=== PATIENT | male | born 1955 | race Caucasian/White ===

== ENCOUNTER → 2021-01-19 | Outpatient (CLI) | payer MEDICARE ==
[~2021-01-19] MED LIST: ALLOPURINOL300 MG PO; COUMADIN5 MG PO; CYCLOBENZAPRINE5 MG PO; GLIPIZIDE5 MG PO; LISINOPRIL10 MG PO; OXYCODONE-ACET1 EAC1 PO; PRAVASTATIN SOD40 MG PO; REGADENOSON 0.4 MG/5 ML SYR IV ONE; TRAMADOL HCL100 MG PO
== END ==
LOC: NM 07:31
PROVIDERS: ATTEND Internal Medicine Cardiovascular Disease
DX: R07.9 Chest pain, unspecified (principal)
CPT/HCPCS: 78452; 93017; A9502; J2785

== ENCOUNTER 2021-03-23 06:48 | Observation (INO) | payer MEDICARE, OTHER ==
[2021-03-19 08:47] LABS: BASOPHILS % 0.5 % (0.0-1.0); EOSINOPHILS # (AUTO) 0.2 (0.0-0.4); EOSINOPHILS % 2.8 % (0.0-6.0); HEMATOCRIT 45.9 % (38.2-49.6); HEMOGLOBIN 15.5 g/dL (14.0-18.0); LYMPHOCYTES # (AUTO) 2.6 (1.0-3.2); LYMPHOCYTES % 31.8 % (18.0-39.1); MEAN CORPUSCULAR HEMOGLOBIN 30.6 pg (28-32); MEAN CORPUSCULAR HGB CONC 33.8 g/dL (31-35); MEAN CORPUSCULAR VOLUME 90.5 fL (81-99); MONOCYTES # (AUTO) 0.6 (0.2-0.8); MONOCYTES % 7.5 % (4.4-11.3); NEUTROPHILS # (AUTO) 4.6 (2.1-6.9); NEUTROPHILS % 57.2 % (38.7-80.0); PLATELET COUNT 169 x10e3/uL (140-360); RED BLOOD COUNT 5.07 x10e6/uL (4.3-5.7); RED CELL DISTRIBUTION WIDTH 13.2 % (11.7-14.4)
[2021-03-19 09:19] LABS: ANION GAP 16.8 mmol/L (8-16); CALCIUM 8.5 mg/dL (8.4-10.2); CREATININE, SERUM 1.18 mg/dL (0.72-1.25); POTASSIUM 3.8 mmol/L (3.5-5.1)
[2021-03-23] VITALS (7 sets, daily range): BP systolic 115–149; BP diastolic 70–79
[~2021-03-23] VITALS: Ht 185.4 cm; Wt 139.7 kg
[~2021-03-23 06:48] MED LIST changes: +AHIST25 MG; -REGADENOSON 0.4 MG/5 ML SYR IV ONE
[2021-03-23] MEDS ORDERED: SODIUM CHLORIDE 0.9% 500ML 500 ML ONE (06:58)
[2021-03-23] MEDS ORDERED: Vancomycin IV 1,000 MG ONE (06:58)
[2021-03-23] MEDS ORDERED: TRANEXAMIC ACID 1,000 MG/10 ML ML ONE (06:59)
[2021-03-23] MEDS ORDERED: DEXAMETHASONE SOD PHOS 10 MG/1 ML VIAL ONE (07:53)
[2021-03-23] MEDS ORDERED: CELECOXIB 200 MG CAP ONE (07:53)
[2021-03-23] MEDS ORDERED: GABAPENTIN 300 MG CAP ONE (07:54)
[2021-03-23] MEDS ORDERED: SODIUM CHLORIDE 0.9% 50ML 100 ML ONE (07:54)
[2021-03-23] MEDS ORDERED: ROPIVACAINE 246.25 MG, EPINEPHRINE HCL 1:1000 1ML 0.5 MG, CLONIDINE HCL 0.08 MG, KETORO... INJ ONE ×5 (08:00)
[2021-03-23 08:08] LABS: INR 0.91; PARTIAL THROMBOPLASTIN TIME 22.9 seconds (23.8-35.5); PROTHROMBIN TIME 12.4 seconds (11.9-14.5)
[2021-03-23] MEDS ORDERED: HYDROCODONE/APAP 5MG-325MG TAB PO PRN (11:00)
[2021-03-23] MEDS ORDERED: DIPHENHYDRAMINE HCL INJ 50 MG/ML VIAL IV PRN (11:00)
[2021-03-23] MEDS ORDERED: ONDANSETRON HCL INJ 2MG/ML 2ML 2 MG/ML VIAL IV PRN (11:00)
[2021-03-23] MEDS ORDERED: DOCUSATE SODIUM 100 MG CAP PO PRN (11:00)
[2021-03-23] MEDS ORDERED: ACETAMINOPHEN 650 MG SUPP PR PRN (11:00)
[2021-03-23] MEDS ORDERED: HYDROMORPHONE 1MG/1ML INJ ONE ×2 (11:34→12:17)
[2021-03-23] MEDS ORDERED: ROPIVACAINE 0.5% 5 MG/ML 30 ML SDV ONE (13:32)
[2021-03-23] MEDS ORDERED: EPINEPHRINE HCL 1:1000 1ML 1 MG/ML AMP ONE (13:32)
[2021-03-23] MEDS ORDERED: PROPOFOL IV EMULSION 10 MG/ML 20 ML VIAL ONE (13:35)
[2021-03-23] MEDS ORDERED: LIDOCAINE HCL 2% LOCAL INJ 5 ML SDV VIAL INJ ONE (13:35)
[2021-03-23] MEDS ORDERED: POVIDONE IODINE 0.05% 0.05 % ML PO ONE (13:35)
[2021-03-23] MEDS ORDERED: ONDANSETRON HCL INJ 2MG/ML 2ML 2 MG/ML VIAL ONE (13:35)
[2021-03-23] MEDS ORDERED: SEVOFLURANE INHAL SOLN 250 ML PEN BTL ONE (13:35)
[2021-03-23] MEDS ORDERED: MIDAZOLAM HCL 2 MG/2 ML VIAL ONE (13:54)
[2021-03-23] MEDS ORDERED: FENTANYL CITRATE/PF 100MCG/2 ML INJ ONE (13:54)
[2021-03-23] MEDS: CELECOXIB 100 MG CAP PO SCH ×2 (14:49→16:55)
[2021-03-23] MEDS: SODIUM CHLORIDE 0.9% 1000ML 1,000 ML IV SCH ×2 (15:59→21:17)
[2021-03-23] MEDS: ASPIRIN 325 MG TAB PO SCH (16:55)
[2021-03-23] MEDS: Cefazolin 1 GM in SODIUM CHLORIDE 0.9% 50ML 50 ML IV SCH ×2 (16:55→21:19)
[2021-03-23] MEDS: METFORMIN HCL 500 MG TAB PO SCH (17:43)
[2021-03-23] MEDS: GLIPIZIDE 5 MG TAB PO SCH (17:43)
[2021-03-23] MEDS ORDERED: DEXTROSE 50% SYRINGE 50 ML IV PRN ×3 (20:30→20:45)
[2021-03-23] MEDS ORDERED: INSULIN LISPRO 100 UNIT/1 ML 3ML VIAL SQ SCH ×2 (21:00)
[2021-03-23] MEDS ORDERED: INSULIN LISPRO 100 UNIT/1 ML 3ML VIAL SQ ONE (21:00)
[2021-03-23] MEDS ORDERED: ZOLPIDEM TARTRATE 5 MG TAB PO PRN (21:00)
[2021-03-24] VITALS (11 sets, daily range): BP systolic 99–134; BP diastolic 54–93
[2021-03-24 05:15] LABS: HEMATOCRIT 39.3 % (38.2-49.6); HEMOGLOBIN 13.1 g/dL (14.0-18.0)
[2021-03-24] MEDS: Cefazolin 1 GM in SODIUM CHLORIDE 0.9% 50ML 50 ML IV SCH (05:58)
[2021-03-24] MEDS: SODIUM CHLORIDE 0.9% 1000ML 1,000 ML IV SCH ×2 (07:00→17:00)
[2021-03-24] MEDS: INSULIN LISPRO 100 UNIT/1 ML 3ML VIAL SQ SCH ×4 (07:30→21:00)
[2021-03-24] MEDS: ASPIRIN 325 MG TAB PO SCH ×2 (08:01→16:24)
[2021-03-24] MEDS: GLIPIZIDE 5 MG TAB PO SCH ×2 (08:01→16:24)
[2021-03-24] MEDS: METFORMIN HCL 500 MG TAB PO SCH ×2 (08:01→16:24)
[2021-03-24] MEDS: ALLOPURINOL 300 MG TAB PO SCH (08:02)
[2021-03-24] MEDS: CELECOXIB 100 MG CAP PO SCH (08:02)
[2021-03-24] MEDS ORDERED: ACETAMINOPHEN 1000 MG/100 ML IV PRN (11:00)
[2021-03-24] MEDS ORDERED: ONDANSETRON HCL 4 MG ORAL DISINTEGRATING TAB PO PRN (12:15)
[2021-03-24] MEDS: CELECOXIB 200 MG CAP PO SCH (16:24)
[2021-03-24] MEDS: HYDROCODONE/APAP 7.5MG-325MG 1 EA TAB PO PRN (22:31)
[2021-03-25] VITALS: BP 135/78
[2021-03-25] MEDS: SODIUM CHLORIDE 0.9% 1000ML 1,000 ML IV SCH (03:00)
[2021-03-25 04:00] VITALS: BP 112/72
[2021-03-25 05:04] LABS: HEMOGLOBIN 12.4 g/dL (14.0-18.0)
[2021-03-25] MEDS: HYDROCODONE/APAP 7.5MG-325MG 1 EA TAB PO PRN ×2 (06:29→10:33)
[2021-03-25] MEDS: INSULIN LISPRO 100 UNIT/1 ML 3ML VIAL SQ SCH ×2 (07:30→11:30)
[2021-03-25] MEDS: GLIPIZIDE 5 MG TAB PO SCH (07:30)
[2021-03-25] MEDS: METFORMIN HCL 500 MG TAB PO SCH (08:00)
[2021-03-25 08:15] VITALS: BP 127/79
[2021-03-25 08:24] VITALS: BP 127/79
[2021-03-25] MEDS: ALLOPURINOL 300 MG TAB PO SCH (09:00)
[2021-03-25] MEDS: ASPIRIN 325 MG TAB PO SCH (09:00)
[2021-03-25] MEDS: CELECOXIB 200 MG CAP PO SCH (09:00)
[2021-03-25] MEDS: CELECOXIB 100 MG CAP PO SCH (10:33)
[2021-03-25 12:00] VITALS: BP 108/78
[2021-03-25] MEDS ORDERED: WARFARIN SOD 2 MG TAB PO SCH (17:00)
== END 2021-03-25 14:46 | disposition home health service (06) ==
LOC: OR 06:48 → PACU V 11:01 → MED/SURG 14:31
PROVIDERS: ADMIT Specialist; ATTEND Specialist
DX: M17.11 Unilateral primary osteoarthritis, right knee (principal); Z20.822 Contact with and (suspected) exposure to COVID-19; M10.9 Gout, unspecified; I10 Essential (primary) hypertension; Z01.818 Encounter for other preprocedural examination; E66.01 Morbid (severe) obesity due to excess calories; Z68.41 Body mass index [BMI] 40.0-44.9, adult
CPT/HCPCS: 27447; 36415 ×4; 71046; 73560; 80048; 82948 ×3; 85014 ×2; 85018 ×2; 85025; 85610; 85730; 86850; 86900; 86920; 93005; 96372; 97110 ×2; 97116 ×2; 97139; 97162; 97530 ×4; C1713 ×4; C1776 ×2; G0378 ×3; J0171; J0690 ×2; J1100; J1170; J1885; J2001; J2405; J2704; J2795; J3370; J7030; J7040; U0002; J2250; J3010

== ENCOUNTER 2021-05-31 06:16 | Observation (INO) | payer MEDICARE ==
[2021-05-27 11:06] LABS: BASOPHILS % 0.6 % (0.0-1.0); EOSINOPHILS # (AUTO) 0.3 (0.0-0.4); EOSINOPHILS % 3.5 % (0.0-6.0); HEMATOCRIT 42.9 % (38.2-49.6); HEMOGLOBIN 13.9 g/dL (14.0-18.0); LYMPHOCYTES % 27.9 % (18.0-39.1); MEAN CORPUSCULAR HEMOGLOBIN 29.4 pg (28-32); MEAN CORPUSCULAR HGB CONC 32.4 g/dL (31-35); MEAN CORPUSCULAR VOLUME 90.9 fL (81-99); MONOCYTES # (AUTO) 0.5 (0.2-0.8); MONOCYTES % 7.3 % (4.4-11.3); NEUTROPHILS # (AUTO) 4.4 (2.1-6.9); NEUTROPHILS % 60.4 % (38.7-80.0); PLATELET COUNT 243 x10e3/uL (140-360); RED BLOOD COUNT 4.72 x10e6/uL (4.3-5.7); RED CELL DISTRIBUTION WIDTH 14.7 % (11.7-14.4)
[2021-05-27 11:27] LABS: ANION GAP 14.3 mmol/L (8-16); CALCIUM 9.3 mg/dL (8.4-10.2); CREATININE, SERUM 1.08 mg/dL (0.72-1.25); POTASSIUM 4.3 mmol/L (3.5-5.1)
[~2021-05-31] VITALS: Ht 185.4 cm; Wt 132.4 kg
[2021-05-31] MEDS ORDERED: ROPIVACAINE 246.25 MG, EPINEPHRINE HCL 1:1000 1ML 0.5 MG, CLONIDINE HCL 0.08 MG in SODI... INJ ONE (06:30)
[2021-05-31] MEDS ORDERED: DEXAMETHASONE SOD PHOS 10 MG/1 ML VIAL ONE (07:06)
[2021-05-31] MEDS ORDERED: GABAPENTIN 300 MG CAP ONE (07:06)
[2021-05-31] MEDS ORDERED: SODIUM CHLORIDE 0.9% 50ML 100 ML ONE (07:07)
[2021-05-31] MEDS ORDERED: Vancomycin IV 1,000 MG ONE (07:48)
[2021-05-31] MEDS ORDERED: TRANEXAMIC ACID 1,000 MG/10 ML ML ONE (07:48)
[2021-05-31] MEDS ORDERED: SODIUM CHLORIDE 0.9% 500ML 500 ML ONE (07:49)
[2021-05-31 07:58] LABS: INR 0.93; PROTHROMBIN TIME 12.9 seconds (11.9-14.5)
[2021-05-31 07:59] LABS: PARTIAL THROMBOPLASTIN TIME 25.1 seconds (23.8-35.5)
[2021-05-31] MEDS ORDERED: SODIUM CHLORIDE 0.9% 1000ML 1,000 ML IV SCH (10:00)
[2021-05-31] MEDS ORDERED: DIPHENHYDRAMINE HCL INJ 50 MG/ML VIAL IV PRN (10:00)
[2021-05-31] MEDS ORDERED: KETOROLAC TROMETHAMINE 30 MG/ML VIAL IV PRN (10:00)
[2021-05-31] MEDS ORDERED: ACETAMINOPHEN 650 MG SUPP PR PRN (10:00)
[2021-05-31] MEDS ORDERED: HYDROCODONE/APAP 5MG-325MG TAB PO PRN (10:00)
[2021-05-31] MEDS ORDERED: DOCUSATE SODIUM 100 MG CAP PO PRN (10:00)
[2021-05-31] MEDS ORDERED: HYDROCODONE/APAP 7.5MG-325MG 1 EA TAB PO PRN (10:00)
[2021-05-31] MEDS ORDERED: ONDANSETRON HCL INJ 2MG/ML 2ML 2 MG/ML VIAL IV PRN (10:00)
[2021-05-31] MEDS ORDERED: INSULIN REGULAR, HUMAN 100 UNIT/1 ML ONE (10:25)
[2021-05-31] MEDS ORDERED: FENTANYL CITRATE/PF 100MCG/2 ML INJ ONE (10:30)
[2021-05-31] MEDS ORDERED: MORPHINE SULFATE INJ 4 MG/ML INJ 1ML ONE (10:55)
[2021-05-31 11:53] VITALS: BP 149/85
[2021-05-31 11:54] VITALS: BP 149/85
[2021-05-31 12:06] VITALS: BP 149/85
[2021-05-31] MEDS ORDERED: ACETAMINOPHEN 1000 MG/100 ML IV PRN (14:00)
[2021-05-31 15:47] VITALS: BP 183/98
[2021-05-31] MEDS ORDERED: CELECOXIB 100 MG CAP PO SCH (17:00)
[2021-05-31] MEDS ORDERED: Cefazolin 1 GM in SODIUM CHLORIDE 0.9% 50ML 50 ML IV SCH (17:00)
[2021-05-31] MEDS ORDERED: ASPIRIN 325 MG TAB PO SCH (17:00)
[2021-05-31] MEDS ORDERED: ZOLPIDEM TARTRATE 5 MG TAB PO PRN (21:00)
== END 2021-05-31 17:55 | disposition home or self-care (01) ==
LOC: OR 06:16 → PACU V 10:08 → MED/SURG 11:35
PROVIDERS: ADMIT Specialist; ATTEND Specialist
DX: M17.12 Unilateral primary osteoarthritis, left knee (principal); E66.9 Obesity, unspecified; E11.9 Type 2 diabetes mellitus without complications; D64.9 Anemia, unspecified; I10 Essential (primary) hypertension; E78.5 Hyperlipidemia, unspecified; M10.9 Gout, unspecified; Z68.39 Body mass index [BMI] 39.0-39.9, adult; Z88.8 Allergy status to other drugs, medicaments and biological substances; Z87.891 Personal history of nicotine dependence; Z86.711 Personal history of pulmonary embolism; Z88.5 Allergy status to narcotic agent; Z91.013 Allergy to seafood; Z01.812 Encounter for preprocedural laboratory examination; Z20.822 Contact with and (suspected) exposure to COVID-19; Z79.84 Long term (current) use of oral hypoglycemic drugs
CPT/HCPCS: 27447; 36415 ×2; 73560; 80048; 82948; 85025; 85610; 85730; 86850; 86900; 86920; 97116; 97139; 97162; 97530; C1713; G0378; J0171; J0690; J1100; J1817; J2270; J2795; J3010; J3370; J7030; J7040; U0002

== ENCOUNTER 2024-11-09 13:51 | Inpatient (IN) | payer MEDICARE, OTHER ==
[~2024-11-09] VITALS: Ht 185.4 cm; Wt 137.4 kg
[2024-11-09 15:01] LABS: BASOPHILS % 0.4 % (0.0-1.0); EOSINOPHILS # (AUTO) 0.2 (0.0-0.4); EOSINOPHILS % 2.9 % (0.0-6.0); HEMATOCRIT 42.7 % (38.2-49.6); HEMOGLOBIN 14.4 g/dL (14.0-18.0); LYMPHOCYTES # (AUTO) 1.8 (1.0-3.2); LYMPHOCYTES % 21.2 % (18.0-39.1); MEAN CORPUSCULAR HEMOGLOBIN 30.4 pg (28-32); MEAN CORPUSCULAR HGB CONC 33.7 g/dL (31-35); MEAN CORPUSCULAR VOLUME 90.3 fL (81-99); MONOCYTES # (AUTO) 0.5 (0.2-0.8); MONOCYTES % 6.2 % (4.4-11.3); NEUTROPHILS # (AUTO) 5.7 (2.1-6.9); NEUTROPHILS % 68.9 % (38.7-80.0); PLATELET COUNT 304 x10e3/uL (140-360); RED BLOOD COUNT 4.73 x10e6/uL (4.3-5.7); RED CELL DISTRIBUTION WIDTH 13.2 % (11.7-14.4); WHITE BLOOD COUNT 8.25 x10e3/uL (4.8-10.8)
[2024-11-09 15:24] LABS: ALBUMIN 2.9 g/dL (3.5-5.0); ALBUMIN/GLOBULIN RATIO 0.6 (0.8-2.0); ANION GAP 16.6 mmol/L (8-16); BILIRUBIN,TOTAL 0.4 mg/dL (0.2-1.2); CALCIUM 9.2 mg/dL (8.4-10.2); CREATININE, SERUM 1.12 mg/dL (0.72-1.25); POTASSIUM 4.6 mmol/L (3.5-5.1); TOTAL PROTEIN 7.8 g/dL (6.5-8.1)
[2024-11-09] MEDS: SODIUM CHLORIDE 0.9% 1000ML 1,000 ML IV SCH (16:05)
[2024-11-09 16:14] VITALS: PULSE 65; RESP 28; TEMP 98.7
[2024-11-09 16:49] VITALS: PULSE 74; RESP 20; O2SAT 96
[2024-11-09] MEDS ORDERED: BENZONATATE 100 MG CAP PO PRN (17:15)
[2024-11-09] MEDS ORDERED: DEXTROSE 50% SYRINGE 50 ML IV PRN ×2 (17:15)
[2024-11-09] MEDS ORDERED: SIMETHICONE 80 MG CHEW PO PRN (17:15)
[2024-11-09] MEDS ORDERED: DIPHENHYDRAMINE HCL 25 MG CAP PO PRN (17:15)
[2024-11-09] MEDS ORDERED: ALBUTEROL/IPRATROPIUM 3 ML NEB NEB PRN (17:15)
[2024-11-09] MEDS ORDERED: LIDOCAINE 4% PATCH TP PRN (17:15)
[2024-11-09] MEDS ORDERED: HYDRALAZINE HCL 20 MG/ML VIAL IV PRN (17:15)
[2024-11-09] MEDS ORDERED: DOCUSATE SODIUM 100 MG CAP PO PRN (17:15)
[2024-11-09] MEDS ORDERED: POTASSIUM CHLORIDE 20 MEQ TAB CR PO PRN (17:15)
[2024-11-09] MEDS ORDERED: MELATONIN 5 MG TABLET PO PRN (17:15)
[2024-11-09 17:27] LABS: INR 0.97; PROTHROMBIN TIME 13.5 seconds (11.9-14.5)
[2024-11-09 18:23] VITALS: BP 133/84; PULSE 65; RESP 17; TEMP 98.3; O2SAT 100
[2024-11-09 18:27] VITALS: BP 133/84; PULSE 65; RESP 17; TEMP 98.3; O2SAT 100
[2024-11-09 19:05] VITALS: PULSE 65; RESP 18; O2SAT 99
[2024-11-09] MEDS: Vancomycin IV 1 GM in SODIUM CHLORIDE 0.9% 250ML 250 ML IV SCH (19:16)
[2024-11-09] MEDS: CEFTRIAXONE 2 GM in SODIUM CHLORIDE 0.9% 100 ML IV SCH (19:16)
[2024-11-09] MEDS: INSULIN LISPRO 100 UNIT/1 ML 3ML VIAL SQ SCH (21:48)
[2024-11-09 22:57] VITALS: BP 133/84; PULSE 65; RESP 18; TEMP 98.3; O2SAT 99
[2024-11-10] VITALS (8 sets, daily range): BP systolic 125–157; BP diastolic 63–78; PULSE 62–82; RESP 16–21; TEMP 98–98.6; O2SAT 97–100
[2024-11-10 07:04] LABS: BASOPHILS # (AUTO) 0.1 (0.0-0.1); BASOPHILS % 0.6 % (0.0-1.0); EOSINOPHILS # (AUTO) 0.3 (0.0-0.4); EOSINOPHILS % 3.4 % (0.0-6.0); HEMATOCRIT 38.5 % (38.2-49.6); HEMOGLOBIN 12.8 g/dL (14.0-18.0); LYMPHOCYTES # (AUTO) 2.4 (1.0-3.2); LYMPHOCYTES % 27.8 % (18.0-39.1); MEAN CORPUSCULAR HEMOGLOBIN 30.3 pg (28-32); MEAN CORPUSCULAR HGB CONC 33.2 g/dL (31-35); MONOCYTES # (AUTO) 0.7 (0.2-0.8); MONOCYTES % 7.7 % (4.4-11.3); NEUTROPHILS # (AUTO) 5.2 (2.1-6.9); PLATELET COUNT 270 x10e3/uL (140-360); RED BLOOD COUNT 4.23 x10e6/uL (4.3-5.7); RED CELL DISTRIBUTION WIDTH 13.2 % (11.7-14.4); WHITE BLOOD COUNT 8.57 x10e3/uL (4.8-10.8)
[2024-11-10 07:44] LABS: ANION GAP 14.1 mmol/L (8-16); CALCIUM 8.6 mg/dL (8.4-10.2); CREATININE, SERUM 0.92 mg/dL (0.72-1.25); POTASSIUM 4.1 mmol/L (3.5-5.1)
[2024-11-10 07:46] LABS: CHOL/HDL RATIO 4.7 (3.9-4.7)
[2024-11-10 08:07] LABS: THYROID STIMULATING HORMONE 2.917 uIU/mL (0.350-4.940)
[2024-11-10] MEDS: PANTOPRAZOLE SOD 40 MG TABEC PO SCH (09:11)
[2024-11-10] MEDS: ACETAMINOPHEN 325 MG TAB PO PRN (12:06)
[2024-11-10] MEDS ORDERED: ENOXAPARIN SOD INJ 120 MG/0.8 ML SYR SC SCH (16:00)
[2024-11-10] MEDS ORDERED: ENOXAPARIN SODIUM INJ 100 MG/ML SYR SC SCH (16:00)
[2024-11-10] MEDS: ENOXAPARIN SOD INJ 40 MG/0.4 ML SYR SC SCH (16:52)
[2024-11-10] MEDS: ENOXAPARIN SODIUM INJ 100 MG/ML SYR SC SCH (16:52)
[2024-11-10] MEDS: WARFARIN SOD 2 MG TAB PO SCH (16:53)
[2024-11-10] MEDS: WARFARIN SOD 5 MG TAB PO SCH (16:53)
[2024-11-10] MEDS ORDERED: ENOXAPARIN SOD INJ 40 MG/0.4 ML SYR SC SCH (17:00)
[2024-11-10] MEDS: INSULIN GLARGINE 100 UNITS/ML VIAL SQ SCH (21:53)
[2024-11-11] VITALS (12 sets, daily range): BP systolic 132–157; BP diastolic 62–72; PULSE 60–76; RESP 17–20; TEMP 97.6–97.9; O2SAT 93–100
[2024-11-11 05:54] LABS: BASOPHILS % 0.5 % (0.0-1.0); EOSINOPHILS # (AUTO) 0.2 (0.0-0.4); EOSINOPHILS % 3.8 % (0.0-6.0); HEMATOCRIT 36.9 % (38.2-49.6); LYMPHOCYTES # (AUTO) 2.2 (1.0-3.2); LYMPHOCYTES % 34.9 % (18.0-39.1); MEAN CORPUSCULAR HEMOGLOBIN 30.2 pg (28-32); MEAN CORPUSCULAR HGB CONC 32.5 g/dL (31-35); MEAN CORPUSCULAR VOLUME 92.9 fL (81-99); MONOCYTES # (AUTO) 0.5 (0.2-0.8); MONOCYTES % 7.8 % (4.4-11.3); NEUTROPHILS # (AUTO) 3.3 (2.1-6.9); NEUTROPHILS % 52.7 % (38.7-80.0); PLATELET COUNT 244 x10e3/uL (140-360); RED BLOOD COUNT 3.97 x10e6/uL (4.3-5.7); RED CELL DISTRIBUTION WIDTH 13.3 % (11.7-14.4); WHITE BLOOD COUNT 6.28 x10e3/uL (4.8-10.8)
[2024-11-11 06:11] LABS: INR 1.19; PROTHROMBIN TIME 15.8 seconds (11.9-14.5)
[2024-11-11 06:14] LABS: ANION GAP 12.3 mmol/L (8-16); CALCIUM 8.4 mg/dL (8.4-10.2); CREATININE, SERUM 0.92 mg/dL (0.72-1.25); POTASSIUM 4.3 mmol/L (3.5-5.1)
[2024-11-11] MEDS: ONDANSETRON HCL INJ 2MG/ML 2ML 2 MG/ML VIAL IV PRN (17:55)
[2024-11-11] MEDS: Morphine 4mg INJECTION 4 MG/ML INJ IV PRN (18:00)
[2024-11-12] VITALS (9 sets, daily range): BP systolic 124–139; BP diastolic 56–68; PULSE 59–66; RESP 16–19; TEMP 97.5–98.2; O2SAT 96–100
[2024-11-12 05:27] LABS: BASOPHILS % 0.6 % (0.0-1.0); EOSINOPHILS # (AUTO) 0.3 (0.0-0.4); EOSINOPHILS % 4.2 % (0.0-6.0); HEMATOCRIT 38.5 % (38.2-49.6); HEMOGLOBIN 12.2 g/dL (14.0-18.0); LYMPHOCYTES # (AUTO) 2.6 (1.0-3.2); MEAN CORPUSCULAR HEMOGLOBIN 29.9 pg (28-32); MEAN CORPUSCULAR HGB CONC 31.7 g/dL (31-35); MEAN CORPUSCULAR VOLUME 94.4 fL (81-99); MONOCYTES # (AUTO) 0.6 (0.2-0.8); MONOCYTES % 8.4 % (4.4-11.3); NEUTROPHILS # (AUTO) 3.4 (2.1-6.9); NEUTROPHILS % 48.7 % (38.7-80.0); PLATELET COUNT 266 x10e3/uL (140-360); RED BLOOD COUNT 4.08 x10e6/uL (4.3-5.7); RED CELL DISTRIBUTION WIDTH 13.3 % (11.7-14.4)
[2024-11-12 06:08] LABS: ANION GAP 12.2 mmol/L (8-16); CALCIUM 8.4 mg/dL (8.4-10.2); CREATININE, SERUM 1.15 mg/dL (0.72-1.25); POTASSIUM 4.2 mmol/L (3.5-5.1)
[2024-11-12 06:10] LABS: INR 1.12; PROTHROMBIN TIME 15.1 seconds (11.9-14.5)
[2024-11-13] VITALS (11 sets, daily range): BP systolic 122–163; BP diastolic 53–82; PULSE 57–75; RESP 18–19; TEMP 97.5–98.2; O2SAT 96–100
[2024-11-13 05:41] LABS: BASOPHILS % 0.5 % (0.0-1.0); EOSINOPHILS # (AUTO) 0.2 (0.0-0.4); EOSINOPHILS % 3.7 % (0.0-6.0); HEMATOCRIT 35.7 % (38.2-49.6); HEMOGLOBIN 11.8 g/dL (14.0-18.0); LYMPHOCYTES % 32.7 % (18.0-39.1); MEAN CORPUSCULAR HEMOGLOBIN 30.2 pg (28-32); MEAN CORPUSCULAR HGB CONC 33.1 g/dL (31-35); MEAN CORPUSCULAR VOLUME 91.3 fL (81-99); MONOCYTES # (AUTO) 0.5 (0.2-0.8); MONOCYTES % 8.4 % (4.4-11.3); NEUTROPHILS # (AUTO) 3.4 (2.1-6.9); NEUTROPHILS % 54.2 % (38.7-80.0); PLATELET COUNT 230 x10e3/uL (140-360); RED BLOOD COUNT 3.91 x10e6/uL (4.3-5.7); RED CELL DISTRIBUTION WIDTH 13.3 % (11.7-14.4); WHITE BLOOD COUNT 6.21 x10e3/uL (4.8-10.8)
[2024-11-13 06:21] LABS: ANION GAP 12.1 mmol/L (8-16); CALCIUM 8.6 mg/dL (8.4-10.2); CREATININE, SERUM 0.97 mg/dL (0.72-1.25); POTASSIUM 4.1 mmol/L (3.5-5.1)
[2024-11-13] MEDS ORDERED: ACETAMINOPHEN 1000 MG/100 ML 100 ML IV ONE (07:15)
[2024-11-13] MEDS ORDERED: PROPOFOL IV EMULSION 10 MG/ML 20 ML VIAL ONE (07:15)
[2024-11-13] MEDS ORDERED: LIDOCAINE HCL 2% LOCAL INJ 5 ML SDV VIAL INJ ONE (07:15)
[2024-11-13] MEDS ORDERED: SEVOFLURANE INHAL SOLN 250 ML PEN BTL ONE (07:15)
[2024-11-13] MEDS ORDERED: FENTANYL CITRATE/PF 100MCG/2 ML INJ ONE (07:15)
[2024-11-13 15:25] LABS: INR 0.98; PROTHROMBIN TIME 13.6 seconds (11.9-14.5)
[2024-11-13] MEDS: WARFARIN SOD 2 MG TAB PO SCH (17:05)
[2024-11-13] MEDS: WARFARIN SOD 5 MG TAB PO SCH (17:05)
[2024-11-13] MEDS: LOPERAMIDE HCL 2 MG/15 ML UDC PO PRN (17:12)
[2024-11-14] VITALS (10 sets, daily range): BP systolic 108–151; BP diastolic 63–95; PULSE 58–74; RESP 18–20; TEMP 97.5–98.4; O2SAT 95–99
[2024-11-14 05:58] LABS: BASOPHILS % 0.4 % (0.0-1.0); EOSINOPHILS # (AUTO) 0.3 (0.0-0.4); EOSINOPHILS % 3.4 % (0.0-6.0); HEMATOCRIT 36.7 % (38.2-49.6); HEMOGLOBIN 11.9 g/dL (14.0-18.0); LYMPHOCYTES # (AUTO) 2.1 (1.0-3.2); LYMPHOCYTES % 27.7 % (18.0-39.1); MEAN CORPUSCULAR HEMOGLOBIN 30.1 pg (28-32); MEAN CORPUSCULAR HGB CONC 32.4 g/dL (31-35); MEAN CORPUSCULAR VOLUME 92.9 fL (81-99); MONOCYTES # (AUTO) 0.6 (0.2-0.8); MONOCYTES % 8.5 % (4.4-11.3); NEUTROPHILS # (AUTO) 4.5 (2.1-6.9); NEUTROPHILS % 59.6 % (38.7-80.0); PLATELET COUNT 247 x10e3/uL (140-360); RED BLOOD COUNT 3.95 x10e6/uL (4.3-5.7); RED CELL DISTRIBUTION WIDTH 13.4 % (11.7-14.4); WHITE BLOOD COUNT 7.57 x10e3/uL (4.8-10.8)
[2024-11-14 06:15] LABS: INR 1.04; PROTHROMBIN TIME 14.2 seconds (11.9-14.5)
[2024-11-14 06:26] LABS: ANION GAP 11.5 mmol/L (8-16); CALCIUM 8.6 mg/dL (8.4-10.2); CREATININE, SERUM 1.13 mg/dL (0.72-1.25); POTASSIUM 4.5 mmol/L (3.5-5.1)
[2024-11-14] MEDS: INSULIN GLARGINE 100 UNITS/ML VIAL SQ SCH (20:32)
[2024-11-15] VITALS (11 sets, daily range): BP systolic 135–179; BP diastolic 76–91; PULSE 59–72; RESP 18–20; TEMP 98.1–98.4; O2SAT 95–100
[2024-11-15] MEDS ORDERED: Morphine 4mg INJECTION 4 MG/ML INJ IV PRN (16:00)
[2024-11-15 22:09] LABS: INR 1.05; PROTHROMBIN TIME 14.3 seconds (11.9-14.5)
[2024-11-16] VITALS (11 sets, daily range): BP systolic 134–166; BP diastolic 60–81; PULSE 60–75; RESP 17–20; TEMP 97.8–98.6; O2SAT 93–100
[2024-11-16 06:47] LABS: BASOPHILS % 0.6 % (0.0-1.0); EOSINOPHILS # (AUTO) 0.3 (0.0-0.4); EOSINOPHILS % 3.7 % (0.0-6.0); HEMATOCRIT 38.8 % (38.2-49.6); HEMOGLOBIN 12.7 g/dL (14.0-18.0); LYMPHOCYTES # (AUTO) 2.2 (1.0-3.2); LYMPHOCYTES % 33.1 % (18.0-39.1); MEAN CORPUSCULAR HEMOGLOBIN 30.3 pg (28-32); MEAN CORPUSCULAR HGB CONC 32.7 g/dL (31-35); MEAN CORPUSCULAR VOLUME 92.6 fL (81-99); MONOCYTES # (AUTO) 0.6 (0.2-0.8); MONOCYTES % 8.2 % (4.4-11.3); NEUTROPHILS # (AUTO) 3.6 (2.1-6.9); NEUTROPHILS % 54.1 % (38.7-80.0); PLATELET COUNT 219 x10e3/uL (140-360); RED BLOOD COUNT 4.19 x10e6/uL (4.3-5.7); RED CELL DISTRIBUTION WIDTH 13.3 % (11.7-14.4); WHITE BLOOD COUNT 6.68 x10e3/uL (4.8-10.8)
[2024-11-16 06:53] LABS: INR 1.08; PROTHROMBIN TIME 14.7 seconds (11.9-14.5)
[2024-11-16 07:12] LABS: CALCIUM 8.9 mg/dL (8.4-10.2); CREATININE, SERUM 0.97 mg/dL (0.72-1.25)
[2024-11-16] MEDS: WARFARIN SOD 5 MG TAB PO ONE (13:56)
[2024-11-17] VITALS (10 sets, daily range): BP systolic 132–146; BP diastolic 56–72; PULSE 60–76; RESP 18–20; TEMP 97.2–98.3; O2SAT 95–100
[2024-11-17 05:52] LABS: BASOPHILS % 0.6 % (0.0-1.0); EOSINOPHILS # (AUTO) 0.3 (0.0-0.4); EOSINOPHILS % 3.7 % (0.0-6.0); HEMATOCRIT 36.5 % (38.2-49.6); HEMOGLOBIN 12.1 g/dL (14.0-18.0); LYMPHOCYTES # (AUTO) 2.5 (1.0-3.2); LYMPHOCYTES % 36.7 % (18.0-39.1); MEAN CORPUSCULAR HEMOGLOBIN 30.3 pg (28-32); MEAN CORPUSCULAR HGB CONC 33.2 g/dL (31-35); MEAN CORPUSCULAR VOLUME 91.5 fL (81-99); MONOCYTES # (AUTO) 0.6 (0.2-0.8); MONOCYTES % 8.1 % (4.4-11.3); NEUTROPHILS # (AUTO) 3.4 (2.1-6.9); NEUTROPHILS % 50.8 % (38.7-80.0); PLATELET COUNT 252 x10e3/uL (140-360); RED BLOOD COUNT 3.99 x10e6/uL (4.3-5.7); RED CELL DISTRIBUTION WIDTH 13.5 % (11.7-14.4); WHITE BLOOD COUNT 6.76 x10e3/uL (4.8-10.8)
[2024-11-17 06:04] LABS: INR 1.1; PROTHROMBIN TIME 14.9 seconds (11.9-14.5)
[2024-11-17 06:09] LABS: ANION GAP 13.9 mmol/L (8-16); CALCIUM 8.6 mg/dL (8.4-10.2); CREATININE, SERUM 1.01 mg/dL (0.72-1.25); POTASSIUM 3.9 mmol/L (3.5-5.1)
[2024-11-17] MEDS: WARFARIN SOD 5 MG TAB PO ONE (16:30)
[2024-11-17] MEDS: ENOXAPARIN SOD INJ 40 MG/0.4 ML SYR SC SCH (16:30)
[2024-11-17] MEDS: ENOXAPARIN SODIUM INJ 100 MG/ML SYR SC SCH (16:30)
[2024-11-18] VITALS: BP 131/68; PULSE 60; RESP 20; TEMP 98.1; O2SAT 97
[2024-11-18 04:55] VITALS: BP 137/65; PULSE 64; RESP 20; TEMP 98; O2SAT 96
[2024-11-18 06:04] LABS: INR 1.17; PROTHROMBIN TIME 15.6 seconds (11.9-14.5)
[2024-11-18 08:36] VITALS: BP 137/62; PULSE 61; RESP 20; TEMP 98.1; O2SAT 95
[2024-11-18 08:42] VITALS: PULSE 65; RESP 18; O2SAT 93
[2024-11-18 12:29] VITALS: BP 149/72; PULSE 58; RESP 19; TEMP 98.1; O2SAT 97
[2024-11-18] MEDS: WARFARIN SOD 5 MG TAB PO ONE (15:18)
== END 2024-11-18 15:35 | disposition home or self-care (01) | DRG 617 ==
LOC: ER 15:40 → ERHOLD 15:54 → MED/SURG2 16:55
PROVIDERS: ADMIT Internal Medicine; ATTEND Internal Medicine
PROC: 0Y6S0Z0 Detachment at Left 2nd Toe, Complete, Open Approach (ICD-10-PCS; principal; 2024-11-13 07:50)
DX: E11.69 Type 2 diabetes mellitus with other specified complication (principal); D68.8 Other specified coagulation defects; E11.52 Type 2 diabetes mellitus with diabetic peripheral angiopathy with gangrene; Z68.41 Body mass index [BMI] 40.0-44.9, adult; L97.528 Non-pressure chronic ulcer of other part of left foot with other specified severity; L03.116 Cellulitis of left lower limb; M86.172 Other acute osteomyelitis, left ankle and foot; E66.01 Morbid (severe) obesity due to excess calories; E11.621 Type 2 diabetes mellitus with foot ulcer; B96.4 Proteus (mirabilis) (morganii) as the cause of diseases classified elsewhere; E11.65 Type 2 diabetes mellitus with hyperglycemia; E11.42 Type 2 diabetes mellitus with diabetic polyneuropathy; E78.5 Hyperlipidemia, unspecified; D64.9 Anemia, unspecified; B95.2 Enterococcus as the cause of diseases classified elsewhere; Z79.4 Long term (current) use of insulin; Z79.01 Long term (current) use of anticoagulants; Z86.711 Personal history of pulmonary embolism; Z88.5 Allergy status to narcotic agent; Z88.6 Allergy status to analgesic agent; Z91.013 Allergy to seafood; Z83.3 Family history of diabetes mellitus
CPT/HCPCS: 36415; 80048; 80053; 80061; 80202; 82948; 83036; 84443; 85025; 85610; 87040; 87071; 87075; 87186; 87205; 88304; 88311; 94799; 96372; 99284; J0696; J1650; J1815; J2003; J2270; J2405; J2470; J2543; J7030; J7050